=== PATIENT | female | born 1970 | race Caucasian/White ===

== ENCOUNTER 2019-05-08 14:10 | Outpatient (REF) | payer BC, SELFPAY ==
[2019-05-09 17:54] LABS: COVID-19 RT-PCR Result See Comments
== END 2019-05-08 14:30 ==
LOC: LBN 14:10
PROVIDERS: PCP Family Medicine; Visit Provider Family Medicine
DX: J98.8 Other specified respiratory disorders (principal); R05 Cough; R50.81 Fever presenting with conditions classified elsewhere; Z20.828 Contact with and (suspected) exposure to other viral communicable diseases; Z11.59 Encounter for screening for other viral diseases
CPT/HCPCS: 87449; U0003